=== PATIENT | male | born 1980 | race Caucasian/White ===

== ENCOUNTER → 2018-02-20 14:04 | Outpatient (CLI) | payer MEDICAID, SELFPAY ==
--- NOTE | 2018-02-20 | LES_PTH ---
PATIENT: HILLARY GALLARDO LOC: [facility] U#:[id number] AGE/SX: 44/M ROOM: RE02/20/[address]: Dr. Norbert Wells DO : 1980 BED: DIS: SPEC #: [id number] RECD: 02/20/18 15:13 STATUS: CHAI LOC #: [id number] JORGE A: 02/20/18 00:[address]: Norbert Wells DEPT: SURGICAL PATHOLOGY RECD BY: Gee Hillman Tissues: Skin of back, NOS Procedures: Surgery Specimen Level IV HEADER OPERATION: Punch biopsy atypical nevus back PRE-OP DIAGNOSIS: Abnormal mole, rule out melanoma TISSUE SUBMITTED: 5 mm punch biopsy MICROSCOPIC DIAGNOSIS Atypical nevus of back, punch biopsy: Malignant melanoma. See Cancer checklist below. AM:gene 02/22/18 COMMENT CANCER CARE SUMMARY Histologic Type: Superficial spreading type Level of Invasion: Abrahan Level II Tumor Thickness: 0.4 mm Mitotic Rate: No mitoses identified Ulceration: Not Identified Regression: Present Tumor Infiltrating Lymphocytes: Not Identified Lymphovascular Invasion: Not Identified Perineural Invasion: Not Identified Micro-satellitosis: Not Identified Peripheral Margins: Positive Deep Margin (Base of Specimen): Negative Primary Tumor / Pathologic Stage (pT): pT1a (less than 0.8 mm, no ulceration). Note: SOX-10, Melan A immunostains and multiple level sections have been examined. Immunohistochemistry ([id number]) supports the above diagnosis. Case has been reviewed in consultation with Dr. Steele of [employer], on 03/02/18, who concurs with the above diagnosis and where the case was also peer reviewed. See complete report in patient's EMR. Case has been reviewed in consultation with Dr. Hughes who concurs with the above diagnosis. IDC:SJ MICROSCOPIC DESCRIPTION Slides are reviewed. GROSS DESCRIPTION Received is one container labeled with the patient's name and not further designated. The specimen consists of a piece of brown skin measuring 0.5 x 0.4 x 0.1 cm. The specimen is inked and submitted entirely in one cassette. It will be bisected at the time of embedding. / EMMANUEL:gene 02/21/18 TC:0 CPT: 88578
--- NOTE | 2018-02-20 | IMM_PTH ---
PATIENT: HILLARY GALLARDO LOC: [facility] U#:[id number] AGE/SX: 44/M ROOM: RE02/20/[address]: Dr. Norbert Wells DO : 1980 BED: DIS: SPEC #: [id number] RECD: 02/22/18 13:09 STATUS: CHAI RECamilo #: [id number] JORGE A: 02/20/18 00:[address]: Norbert Wells DEPT: IMMUNOHISTOCHEMISTRY RECD BY: Viri Nieto Tissues: Skin of back, NOS Procedures: MACRO (add) P53 (add) Vimentin (add) Pankeratin (add) MELAN-A (initial) S-100 (add) PHYSICIAN & INSTITUTION [place] [address] SPECIMEN INFORMATION: Tissue Source: Back, atypical nevus, punch biopsy Clinical Info: Abnormal mole Specimen Number: [id number] CPT code: 50627, 31252 x5 METHODOLOGY: Deparaffinized sections of prefer/formalin-fixed tissue or PAP/DQ stained slides are incubated with monoclonal/polyclonal antibodies/oligonucleotide probes. Localization is made via biotin free immunoperoxidase method. Appropriate controls are performed and reacted as expected. Results on target cell population are indicated in the following table: RESULTS: ANTIBODY / CLONE RESULT Melan A (A103) positive S-100 (4C4.9) positive Vimentin (V9) positive AE1-3 (AE1/AE3/PCK26) negative P53 (DO-7) negative Macro (HAM-56) positive in dermis These tests were developed and their performance characteristics determined by [facility]. They may not have been cleared or approved by the U.S. Food and Drug Administration. The FDA has determined that such clearance or approval is not necessary. INTERPRETATION: Back, atypical nevus, punch biopsy: Invasive malignant melanoma. AM:gene 03/06/18
== END ==
PROVIDERS: Family Provider Family Medicine; PCP Family Medicine; Referring Provider Family Medicine; Visit Provider Family Medicine
DX: D22.5 Melanocytic nevi of trunk (principal)
CPT/HCPCS: 88305; 88341; 88342

== ENCOUNTER 2018-12-26 15:29 | Emergency (ER) | payer MEDICAID, SELFPAY ==
[2018-12-26 15:31] VITALS: BP 155/118; PULSE 88; RESP 15; TEMP 36.3; O2SAT 98; BMI 29.0
--- NOTE | 2018-12-26 15:35 | RAD_ITS ---
STUDY: X-RAY - LEFT TIBIA AND FIBULA REASON FOR EXAM: Male, 38 years old. Pain following a fall. TECHNIQUE: 2 view(s) of the tibia and fibula were obtained. COMPARISON: None. FINDINGS: Evidence of prior anterior cruciate ligament repair. Nondisplaced fracture of the posterior malleolus of the distal tibia. Nondisplaced transverse fracture of the distal fibular shaft as well as the proximal fibular shaft. Asymmetry of the ankle mortise. Small plantar spur. Soft tissue swelling. RAD/Tibia & Fibula 2 Views IMPRESSION: Nondisplaced fracture of the posterior malleolus of the distal tibia as well as transverse fractures of the proximal and distal shafts of the fibula. Asymmetry of the ankle mortise. Soft tissue swelling. Electronically Signed: Duncan Purdy, at 15:52 EST , Service support ,
--- NOTE | 2018-12-26 15:55 | ED.VISSUMM ---
- ER Visit Summary Date of Service: 12/26/18 Chief Complaint: [Injury to left leg] History of Present Illness: The patient is a 38 M [presents to the emergency department with an injury to his left leg that occurred today. Patient states that he was up on a 6 foot ladder when he lost his balance and fell while trying to hang some paneling. Patient landed awkwardly on his left leg. He denies striking his head or loss consciousness. He denies neck pain. Denies chest or abdomen pain. Patient attempted to walk on it but felt like there was something wrong.] Physical Examination: [HEENT-PERRLA, EOMI. Cranial nerves II through XII grossly intact. TMs clear. Mucous membranes moist. No adenopathy. Cardiovascular-regular rate and rhythm without murmur or ectopy Lungs-clear to auscultation, chest wall stable without crepitus or subcu emphysema Abdomen-normoactive bowel sounds, soft, nontender, no rebound or rigidity, no peritoneal signs. Extremities-intact ?4, normal range of motion, normal pulses. Left leg-patient has diffuse tenderness over the fibula. No significant soft tissue swelling or ecchymosis noted. Patient neurovascular intact distally.] Test Results: X-ray of the left tib-fib obtained showed a fracture of the distal third fibula as well as the proximal third of the fibula. [] Emergency Department Course and Treatment: [Case will be discussed with orthopedic surgeon on-call for Dr. Joseph Ortiz's group as patient has seen Dr. Ortiz in the past.] Patient will be placed in a posterior and sugar tong type splint. Patient will be given crutches. Treatment Plan: [Patient given a prescription for [place] for pain. Should follow-up with orthopedics within next 3 to 5 days.] Disposition: [Discharged home in stable condition.] Impression: [Left fibula fracture Mechanical fall] This note was generated with [employer] dictation software. It may contain incorrect words, spelling, and punctuation that were not noted in review of the chart prior to signing ED Disposition - Plan for ED Patient: Referrals: Norbert Wells DO [Primary Care Provider] -
--- NOTE | 2018-12-26 15:58 | ED.DEP ---
ED Disposition - Plan for ED Patient: Instructions: FALL, Mechanical, ANKLE FRACTURE (Distal Fibula), closed Prescriptions: Hydrocodone Bitart/Apap 5-325 [[place] 5MG-325MG] 1 tab PO Q4H PRN PRN 2 Days #20 tab PRN Reason: Pain Prescription Printed Referrals: Norbert Wells DO [Primary Care Provider] -
[2018-12-26 16:12] VITALS: PULSE 89; RESP 17; O2SAT 99
[2018-12-26] MEDS: HYDROcodone Bitartrate/Apap 5/325 Tablet PO (16:28)
== END 2018-12-26 16:43 | disposition home or self-care (01) ==
LOC: ED 16:18
PROVIDERS: Emergency Provider Emergency Medicine; Family Provider Family Medicine; PCP Family Medicine
DX: S82.832A Other fracture of upper and lower end of left fibula, initial encounter for closed fracture (principal); S82.55XA Nondisplaced fracture of medial malleolus of left tibia, initial encounter for closed fracture; W11.XXXA Fall on and from ladder, initial encounter; Y93.89 Activity, other specified; I10 Essential (primary) hypertension; Z79.899 Other long term (current) drug therapy
CPT/HCPCS: 29515; 73590; 99284

== ENCOUNTER → 2018-12-31 07:58 | Outpatient (CLI) | payer MEDICAID, SELFPAY ==
[2018-12-28 10:21] VITALS: BMI 29.0
--- NOTE | 2018-12-31 08:01 | CT_ITS ---
STUDY: CT LEFT TIBIA AND FIBULA WITHOUT CONTRAST REASON FOR EXAM: Male, 38 years old. Status post fall. Tib-fib fracture. Evaluate for surgery. RADIATION DOSAGE (If Supplied By Facility): CTDIvol = ( 15.35 ) mGy, DLP = ( 1003.99 ) mGycm TECHNIQUE: Transaxial CT imaging of the knee was performed. Coronal and sagittal images were reformatted. Individualized dose optimization techniques were used for this CT. COMPARISON: None. FINDINGS: Patient is status post prior ACL reconstruction. No evidence of tibial fracture. There is a mildly comminuted and angulated fracture of the proximal fibula as well as a more transverse linear fracture of the distal fibula. No significant angulation or displacement. There is questionable medial ankle mortise widening suggesting ligamentous injury. As seen on the sagittal sequences, there is a posterior malleolus fracture which is nondisplaced. CT/Extremity Lower without Contra IMPRESSION: Fracture of the proximal fibula and distal fibula as above. Nondisplaced posterior malleolus fracture. Appearance of ankle mortise widening medially Electronically Signed: Trever Arvizu DO at 8:48 EST Tel , Service support ,
== END ==
PROVIDERS: Family Provider Family Medicine; PCP Family Medicine; Referring Provider Physician Assistant; Visit Provider Physician Assistant
DX: S82.832A Other fracture of upper and lower end of left fibula, initial encounter for closed fracture (principal); W19.XXXA Unspecified fall, initial encounter
CPT/HCPCS: 73700

== ENCOUNTER 2019-01-02 10:56 | Day surgery (SDC) | payer MEDICAID, SELFPAY ==
[2019-01-01 10:37] VITALS: BMI 29.0
--- NOTE | 2019-01-01 11:09 | HP_ITS ---
I have re-examined the patient. There are no clinical changes since date of exam. Intake Vital Signs 01/01/19 Body Mass Index (BMI) 29.0 Intake Visit Reasons: LEFT ANKLE Allergies No Known Allergies Allergy (Verified 12/26/18 15:30) [facility] Social History (Updated 01/01/19 @ 11:09 by Lorelei Roberts DO) Smoking Status: Never smoker HPI LEFT ANKLE: Surgical H&P: Yes Details: Parts of this documentation were recorded by a scribe, this documentation accurately reflects the service provided and the decisions made by me, Lorelei Roberts DO 01/01/19 1029. HILLARY GALLARDO is a 38 year old M here today for F/U after CT of lower left leg. For left leg fx. DOI: 12/26/18 Patient fell off a ladder. He was seen in the office on 12/28/18 and was placed in a short leg splint. Denies numbness, tingling or other associated symptoms.states pain localized to site of fracture, has been elevating toes as much as possible. ROS Musc Denies joint pain, Denies joint swelling, Reports limited joint movement, Denies numbness, Reports radiating pain into limb, Reports stiffness, Denies tingling Skin/Breast Denies redness, Denies lesions, Denies itching, Denies rash, Denies skin swelling Neuro No numbness, No tingling Ortho Exam Right Foot/Ankle ANKLE: pos wrinkle sign- dressing taken down anterior ankle No rales rhonchi wheezing, no abdominal pain, no audible bruits, negative Homans sign Assessment & Plan Problems 1. Unspecified fracture of shaft of unspecified fibula, initial encounter for closed fracture S82.409A Plan He has positive wrinkle sign today and will proceed with surgery tomorrow. Reivewed the post op restrictions. Follow up post op or sooner if pain, swelling, numbness or associated symptoms, or concerns develop. All questions answered. Patient in agreement of plan. Coding Level of Care Code Off vis,est,level 3 Diagnoses Unspecified fracture of shaft of unspecified fibula, initial encounter for closed fracture S82.409A 01/01/19 1109 <Electronically signed by Lorelei red DO> Date _ Lorelei Roberts DO
[2019-01-02] VITALS (10 sets, daily range): BP systolic 138–171; BP diastolic 80–109; PULSE 68–89; RESP 16–24; TEMP 36.2–37.2; O2SAT 90–98; BMI 31.7
[2019-01-02] MEDS: Lactated Ringers 1,000 ML 100 ML IV ×3 (11:28→15:36)
[2019-01-02] MEDS: Cefazolin 2 GM in 0.9% Normal Saline 100 ML IV (11:52)
--- NOTE | 2019-01-02 12:00 | RAD_ITS ---
STUDY: X-RAY - LEFT ANKLE REASON FOR EXAM: ORIF of fibular fracture. TECHNIQUE: 4 fluoroscopic images of the ankle. COMPARISON: Radiographs 12/26/2018. FINDINGS: There is an orthopedic plate and screws transfixing the distal fibular diaphyseal fracture in anatomical alignment and position. There is syndesmotic fixation. There is a minimally displaced fracture of the proximal fibular diaphysis. There is a nondisplaced posterior malleolar fracture. 32.7 seconds of fluoroscopy time was used Electronically Signed: Abdulkadir Campbell MD at 15:39 EST Tel , Service support , RAD/Ankle 2 Views
[2019-01-02] MEDS: Mupirocin Ointment 22gm Tube 1 APPLIC (13:59)
--- NOTE | 2019-01-02 14:02 | DCINST_ITS ---
Discharge Diet: No Restrictions - nwb operative limb, elevate toes above nose, call with concerns, follow up in 2 weeks- call office for appt Discharge Activity: May Not Drive May shower in (days): 1 Ice area for (Minutes): 20 - Every hour while awake. Weight Bearing Status: Weight bearing as tolerated Keep extremity elevated above heart level: Operative Extremity Call your doctor if your incision/area has: Continuous Slow Oozing, Sudden Increased Bleeding, Increased Pain/ Swelling, Increased Redness, Foul Smelling Discharge Call your doctor if you observe: Fever of 101 or Higher, Coldness, Increased Pain, Numbness or Tingling, Change in Color, Calf discomfort Allergies/Adverse Reactions: Allergies No Known Allergies Allergy (Verified 01/02/19 11:17) Medications to take at Discharge Atenolol 25 mg PO QHS 12/26/18 Hydrocodone Bitart/Apap 5-325 [[place] 5MG-325MG] 1 tab PO Q4H PRN PRN 2 Days #20 tab 12/26/18 Calcium (Elemental) [Os-Severino 500] 500 mg PO QHS 01/01/19 Magnesium Oxide [Magnesium] 500 mg PO QHS 01/01/19 Hydrocodone Bitart/Apap 5-325 [[place] 5MG-325MG] 1 - 2 tab PO Q6H PRN PRN 5 Days #40 tab 01/02/19 The following prescriptions were given: Hydrocodone Bitart/Apap 5-325 [[place] 5MG-325MG] 1 - 2 tab PO Q6H PRN PRN 5 Days #40 tab PRN Reason: Pain Transmission Status: Received by [facility] Primary Care Physician: Norbert Wells DO [Primary Care Provider] - Test Results: Test results from this visit will be discussed in further detail at your follow- up appointment, if applicable. Please Follow Up With: Lorelei Roberts DO - [phone]
--- NOTE | 2019-01-02 14:04 | PCM.OPRPT ---
Report of Operation Date of Procedure: 01/02/19 Pre-Operative Diagnosis: left ankle syndesmosis injury,/proximal fibula fracture Post-Operative Diagnosis: same Surgery/Procedure Performed:: orif left ankle, syndesmosis fixation- arthrex tight rope//3 tubular plate system military technician: Zay Narvaez Type of Anesthesia:: General Anesthesiologist: Manav Velázquez Estimated Blood Loss (mL): min Fluids Replaced: 1300cc lr Description of Procedure: Preoperative Patient is a 38-year-old male who fell off of a ladder sustained a twisting injury and direct impact injury to his left ankle. Was seen in the office who noted had a positive wrinkle sign. Risk benefits alternatives surgery discussed with patient. Patient is x-rays show displaced and stenosis as well as posterior mall and a proximal fibula fracture as well as a more proximal fibula fracture from direct impact from falling. Risk benefits and alternatives surgery discussed with patient. Risks including but not limited to blood loss, blood clot, infection, neurovascular, failure procedure, loss of life and loss of limb. Patient is aware would like proceed with left ankle open reduction internal fixation repair as indicated. Operative note Patient seen and examined preop holding area. Left leg was marked. Patient brought to the operating room placed supine on the operating table. Signed, anesthesia, antibiotics were administered. All bony prominences well-padded SCDs placed on his contralateral limb and left leg was elevated on blankets. We then used fluoroscopy to ascertain the level of our reduction. We marked it out with a freer using fluoroscopy. The left leg was then elevated segmented entericus raised to pressure of 275 torr. We began our procedure. We then used a 15 blade to cut through the skin just directly onto the lateral malleolus just about 2 cm proximal to the distal tip of the fibula extending proximally to and able to place our 10 hole plate which was determined to be the correct size. We dissected down to the level of the lateral malleolus lateral fibula. We used a freer elevator. We then placed our plate we then were able to debride back the fracture site and then irrigated the fracture site we then used lobster claws to reduce the fracture and traction and external rotation. After doing so we then placed our plate we had a Jeffery as his fibula was made by the plate to place the plate flush to bone and in the lateral aspect of his fibula. We then secured it proximally and distally ensuring in both AP and lateral planes good placement of wires of our plate. After this was done we did place a 3.5 lag screw across the fracture site measuring appropriate and placing in lag screw configuration. We placed the remaining screw holes proximally we had three 3.5 screw holes proximally and then placed to distally we needed to have the 2 remaining screw holes for a tight rope configuration. We placed a clamp across the joint we further reduce the syndesmosis and then placed our too tight rope is across the fibula through the tibia. We confirmed on fluoroscopy and good reduction of our syndesmosis at that point. We then irrigated the incision with copious amounts of sterile saline. The periosteum was closed over the plate. We closed the skin with 3-0 Vicryl and hugo to the ankle. Tourniquet was deflated. Patient tolerated procedure well no complication transferred recovery room in stable condition. Postoperative note Postop neuro check intact Follow-up in 2 weeks in the office with repeat x-rays Nonweightbearing left leg Call with increased pain numbness tingling or further issues arise Told to elevate ice and wiggle toes as much possible This note was generated with [employer] dictation software. It may contain incorrect words, spelling, and punctuation that were not noted in checking the note before signing.
[2019-01-02] MEDS: HYDROcodone Bitartrate/Apap 5/325 Tablet PO (15:45)
== END 2019-01-02 16:55 | disposition home or self-care (01) ==
LOC: SDC 10:57 → AC 10:58
PROVIDERS: Family Provider Family Medicine; PCP Family Medicine; Referring Provider Orthopaedic Surgery; Visit Provider Orthopaedic Surgery
PROC: (CPT 27792; principal; 2019-01-02 12:25)
DX: S82.62XA Displaced fracture of lateral malleolus of left fibula, initial encounter for closed fracture (principal); S82.832A Other fracture of upper and lower end of left fibula, initial encounter for closed fracture; S93.432A Sprain of tibiofibular ligament of left ankle, initial encounter; W11.XXXA Fall on and from ladder, initial encounter; Y93.9 Activity, unspecified; Y92.9 Unspecified place or not applicable; I10 Essential (primary) hypertension; Z79.899 Other long term (current) drug therapy
CPT/HCPCS: 01480; 27792; 27829; 64445; 73600; 76000; C1713; J7120; J2405

== ENCOUNTER → 2019-01-15 09:53 | Outpatient (CLI) | payer MEDICAID, SELFPAY ==
[2019-01-15 09:47] VITALS: BMI 31.7
--- NOTE | 2019-01-15 09:54 | RAD_ITS ---
STUDY: X-RAY - LEFT ANKLE REASON FOR EXAM: Pain, postoperative follow-up. TECHNIQUE: 3 view(s) of the ankle. COMPARISON: Intraoperative images 01/02/2019. FINDINGS: There is an intact orthopedic plate and screws transfixing a distal fibular fracture in anatomic alignment and position. There is syndesmotic fixation. There is a posterior malleolar fracture. Normal medial and lateral malleoli. Normal tibiotalar articulation and ankle mortise. There is a plantar calcaneal enthesophyte. The visualized subtalar, talonavicular, calcaneocuboid and tarsal articulations are normal. There is soft tissue swelling. There is an overlying cast. RAD/Ankle min 3 Views IMPRESSION: ORIF of distal fibular fracture in anatomic alignment and position and syndesmotic fixation. Posterior malleolar fracture. Electronically Signed: Abdulkadir Campbell MD at 14:22 EST Tel , Service support ,
== END ==
PROVIDERS: Family Provider Family Medicine; PCP Family Medicine; Referring Provider Orthopaedic Surgery; Visit Provider Orthopaedic Surgery
DX: S82.409A Unspecified fracture of shaft of unspecified fibula, initial encounter for closed fracture (principal)
CPT/HCPCS: 73610

== ENCOUNTER → 2019-02-07 10:20 | Outpatient (CLI) | payer MEDICAID, SELFPAY ==
[2019-02-07 10:07] VITALS: BMI 31.7
--- NOTE | 2019-02-07 10:21 | RAD_ITS ---
STUDY: X-RAY - LEFT ANKLE REASON FOR EXAM: Male, 38 years old. FOLLOW UP SURGERY/ CAST REMOVAL TECHNIQUE: 3 view(s) of the ankle. COMPARISON: None. FINDINGS: Normal visualized distal tibia and fibula, surgical hardware intact and free of complication. Normal medial and lateral malleoli. Normal tibiotalar articulation and ankle mortise. Normal visualized talus and calcaneus. The visualized subtalar, talonavicular, calcaneocuboid and tarsal articulations are normal. The soft tissue structures are unremarkable. RAD/Ankle min 3 Views IMPRESSION: Previously noted, surgically reduced fibular fracture has healed. No acute findings Surgical hardware in the distal fibula free of complication Electronically Signed: Josep Rodriguez MD at 13:02 EST , Service support ,
--- NOTE | 2019-02-07 11:07 | RAD_ITS ---
STUDY: X-RAY - LEFT TIBIA AND FIBULA REASON FOR EXAM: Male, 38 years old. FX FOLLOW UP. ANKLE INCLUDED ON ANKLE FILMS TECHNIQUE: 2 view(s) of the tibia and fibula were obtained. COMPARISON: 12/26/2018 FINDINGS: No significant healing is occurring previously described comminuted fracture in the proximal fibula. Previously described surgically reduced fracture of the distal fibula appears to have healed. A no longer see evidence of cortical irregularity or lucency. The hardware is intact and free of complication. No acute tibial fracture, there is evidence of previous ACL repair RAD/Tibia & Fibula 2 Views IMPRESSION: Little significant healing is occurring in a previously described multifragmented fracture in the proximal fibula Surgical hardware in the distal fibula from ORIF is intact and free of complication, that distal fibular fracture is healed. Electronically Signed: Josep Rodriguez MD at 12:02 EST , Service support ,
== END ==
PROVIDERS: Family Provider Family Medicine; PCP Family Medicine; Referring Provider Physician Assistant; Visit Provider Physician Assistant
DX: M89.8X6 Other specified disorders of bone, lower leg (principal); Z47.89 Encounter for other orthopedic aftercare
CPT/HCPCS: 73590; 73610

== ENCOUNTER → 2019-03-21 09:15 | Outpatient (CLI) | payer MEDICAID, SELFPAY ==
[2019-03-21 09:13] VITALS: BMI 31.7
--- NOTE | 2019-03-21 09:17 | RAD_ITS ---
STUDY: X-RAY - LEFT ANKLE REASON FOR EXAM: Pain, three-month follow-up ORIF. TECHNIQUE: 3 view(s) of the ankle. COMPARISON: Radiographs 02/07/2019. FINDINGS: There is an intact orthopedic plate and screws transfixing a distal fibular fracture in anatomic alignment and position. There is syndesmotic fixation. There is a healed fracture of the posterior malleolus. Normal tibiotalar articulation and ankle mortise. There is a plantar calcaneal enthesophyte. The visualized subtalar, talonavicular, calcaneocuboid and tarsal articulations are normal. There is soft tissue swelling. RAD/Ankle min 3 Views IMPRESSION: No interval change of ORIF of distal fibular fracture. Electronically Signed: Abdulkadir Campbell MD at 10:05 EST Tel , Service support ,
== END ==
PROVIDERS: PCP Family Medicine; Referring Provider Orthopaedic Surgery; Visit Provider Orthopaedic Surgery
DX: M25.562 Pain in left knee (principal)
CPT/HCPCS: 73610